=== PATIENT | male | born 1990 | race Caucasian/White ===

== ENCOUNTER 2019-10-21 08:05 | Emergency (ER) | payer OTHER, MEDICAID ==
[~2019-10-21] VITALS: Ht 175.3 cm; Wt 90.7 kg
--- NOTE | 2019-10-21 08:07 | NUR ---
ED Nurse Note: Pt brought in by johnnie R26 from home. Pt overdosed on Fentanyl today. Ambulance administered Narcan. Pt is alert and orientedx4, ambulatory. Pt is set up on monitor. 94% RA, HR 103, 122/71, R 20. Pt states he has nausea, no vomiting. He has TOUSSAINT 5/10.
[2019-10-21 08:12] VITALS: BP 122/71
--- NOTE | 2019-10-21 08:34 | Emergency Room Report ---
History of Present Illness General Chief Complaint: Overdose Source: Patient Present Illness HPI Disclaimer: Please note that this report is being documented using DRAGON technology. This can lead to erroneous entry secondary to incorrect interpretation by the dictating instrument. HPI: 29-year-old male with a history of opiate abuse presents for evaluation of overdose. He arrives by EMS. A bystander he was with apparently called for an overdose. The patient had been reportedly smoking fentanyl. He was given Narcan prior to arrival with reported good effect. Patient remembers smoking fentanyl but cannot recall the events prior to arrival in the emergency department. He also states he injected heroin yesterday morning. Denies any alcohol use or other drug use. He is currently resting comfortably and denies any symptoms. He denies any headaches, nausea, vomiting, abdominal pain, cramping, palpitations, shortness of breath, chest pain, fever, chills, sore throat or any other changes in his health. Has not received Narcan before or overdosed in the past according to patient. States this was an accidental overdose and has no SI/HI. PMH: Substance abuse PSH: Reviewed Allergies: Denies Social Hx: Opiate abuse Allergies: Coded Allergies: No Known Allergies (Unverified , 10/21/19) Nursing Documentation-PMH Past Medical History: No Stated History Review of Systems All Other Systems: negative except mentioned in HPI Physical Exam Vital Signs Date Time Temp Pulse Resp B/P (MAP) Pulse Ox O2 Delivery O2 Flow Rate FiO2 10/21/19 07:59 98.1 130 18 181/100 (127) 98 Room Air 10/21/19 08:12 94 General: Awake and alert, no acute distress HEENT: NC/AT. EOMI. PERRLA. No stridor. Cardiovascular: RRR. S1 and S2 normal. No murmur appreciated Resp: Normal work of breathing. No cough, wheezing or crackles appreciated Abdomen: Abdomen is soft, nondistended. Nontender Skin: Intact. No abrasions, laceration or rash over the exposed skin MSK: Normal tone and bulk. Moving all extremities. No obvious deformity. Neuro: Awake and alert. Mentating appropriately. Medical Decision Making Diagnostic Impression: Primary Impression: Opiate overdose ER Course 29-year-old male presents for evaluation of suspected opiate overdose after smoking fentanyl this morning. He received Narcan prior to arrival and arrives with stable vital signs, clear respirations, no distress and no complaints. Lungs are clear. He will be monitored in the emergency department for several hours. If he remains asymptomatic he may be discharged otherwise can advance work-up as needed. Do not believe he requires emergent labs, imaging or other interventions at this time unless his condition changes. Reevaluation Time: 10:55 Last Vital Signs Date Time Temp Pulse Resp B/P (MAP) Pulse Ox O2 Delivery O2 Flow Rate FiO2 10/21/19 08:12 103 20 Room Air 94 10/21/19 08:12 98.1 122/71 94 Status: unchanged Reevaluation Impression Patient observed in the emergency department for approximately 3 hours. He is resting comfortably, no distress, no respiratory depression and overall at his baseline. Again he states this was an accidental overdose and denies any suicidality or thoughts of self-harm. He has completed rehab programs before but I will provide additional resources in his discharge paperwork. Also prescribe him a Narcan kit to carry on him. Encouraged him to follow-up with his prior counselors and occupational rehabilitation aide. Can return with any new or worsening symptoms. Disposition: HOME, SELF-CARE Condition: Stable Scripts Naloxone HCl (Narcan) 4 Mg [place] 4 MG NS ONCE, #1 SPRAY Prov: Taqueria Ellis MD 10/21/19 Referrals: NON PHYSICIAN (PCP) Taqueria Ellis MD Oct 21, 2019 08:34
[2019-10-21] MEDS ORDERED: NARCAN4 MG NS (08:38)
[2019-10-21 10:46] VITALS: BP 125/78
--- NOTE | 2019-10-21 10:55 | NUR ---
ED Nurse Note: Report received from NICOLE Johnson. PT is in bed with no acute distress noted. VSS.
[2019-10-21 10:59] VITALS: BP 122/80
--- NOTE | 2019-10-21 10:59 | NUR ---
ER DISCHARGE NOTE: Patient is cleared to be discharged per ERMD, pt is aox4, on room air, with stable vital signs. pt was given dc and prescription instructions, pt was able to verbalize understanding, pt id band without complications. pt is able to ambulate with steady gait. pt took all belongings.
== END 2019-10-21 10:59 | disposition home or self-care (01) ==
LOC: EDBD 08:05 → EMR 08:28
DX: T40.601A Poisoning by unspecified narcotics, accidental (unintentional), initial encounter (principal); X58.XXXA Exposure to other specified factors, initial encounter; Y92.9 Unspecified place or not applicable
CPT/HCPCS: 99282